=== PATIENT | male | born 1965 | race Hispanic/Latino ===

== ENCOUNTER 2018-01-20 21:43 | Emergency (ER) | payer SELFPAY ==
[2018-01-20] MEDS ORDERED: TETANUS/DIPHTHERIA TOXOID [ADULT] 0.5 ML VIAL IM ONE (22:00)
[2018-01-20] MEDS ORDERED: KETOROLAC TROMETHAMINE 60 MG/2 ML VIAL ONE (23:06)
[2018-01-20] MEDS ORDERED: SODIUM CHLORIDE 0.9% 100 ML IV ONE (23:31)
[2018-01-20] MEDS ORDERED: CEFAZOLIN SODIUM 1 GM VIAL ONE (23:31)
== END 2018-01-21 01:43 | disposition home or self-care (01) ==
LOC: EDH 21:43
DX: S61.213A Laceration without foreign body of left middle finger without damage to nail, initial encounter (principal); S61.215A Laceration without foreign body of left ring finger without damage to nail, initial encounter; W23.0XXA Caught, crushed, jammed, or pinched between moving objects, initial encounter; Y93.89 Activity, other specified; Y92.89 Other specified places as the place of occurrence of the external cause; Y99.8 Other external cause status
CPT/HCPCS: 12042; 73130; 90471; 90714; 96365; 96366; 96372; 99285; J0690; J1885